=== PATIENT | male | born 1980 | race Caucasian/White ===

== ENCOUNTER 2018-11-29 17:17 | Inpatient (IN) | payer OTHER ==
[~2018-11-29] VITALS: Ht 180.3 cm; Wt 103.1 kg
[2018-11-29 18:50] VITALS: BP 145/91; PULSE 92; RESP 20
[2018-11-29 19:03] VITALS: BP 145/91; PULSE 72; RESP 19
[2018-11-29] MEDS ORDERED: HYDROCODONE/APAP (5/325) TAB PO PRN (19:30)
[2018-11-29] MEDS ORDERED: NACL 0.9% 3 ML SYG IV SCH (19:30)
[2018-11-29] MEDS ORDERED: ACETAMINOPHEN 325 MG TAB PO PRN (19:30)
[2018-11-29] MEDS ORDERED: ONDANSETRON 4 MG INJ IV PRN (19:30)
[2018-11-29 19:46] VITALS: Ht 180.3 cm; Wt 103.1 kg
[2018-11-29 20:00] VITALS: BP 133/85; PULSE 74; RESP 17
[2018-11-29] MEDS: D5W-0.45 NACL + KCL 20 MEQ 1,000 ML IV SCH (20:31)
[2018-11-29] MEDS: morphine 2 MG INJ IV PRN (21:26)
--- NOTE | 2018-11-30 00:16 | HP ---
Date/Time of Note Date/Time of Note DATE: 11/30/18 TIME: 00:15 Assessment/Plan VTE Prophylaxis Risk score (from Nsg)>0 risk: 0 SCD applied (from Nsg): Yes Pharmacological prophylaxis: heparin Lines/Catheters IV Catheter Type (from Nrsg): Saline Lock Urinary Cath still in place: No Assessment/Plan Assessment/Plan 37-year-old female with a history of appendectomy about 20 years ago presented on outside hospital with abdominal pain as well as nausea and vomiting secondary to small bowel obstruction PLAN Keep n.p.o. with IV fluid NG tube to low intermittent suction Pain meds and antiemetics as needed Surgical consult HPI/ROS Admit Date/Time Admit Date/Time Nov 29, 2018 at 18:39 Hx of Present Illness This is a 37-year-old female with a history of appendectomy who initially presented on outside hospital complaining of abdominal pain and nausea/vomiting. Pain has been diffuse and has been going on for about [address] at the outside facility showed small bowel obstruction. Patient was transferred to [facility] for insurance reason. PMH/Family/Social Past Medical History Medical History: other (see hpi) Medications Current Medications Potassium Chloride/Dextrose/ Sod Cl 1,000 ml @ 100 mls/hr Q10H IV Last administered on 11/29/18at 20:31; Admin Dose 100 MLS/HR; Start 11/29/18 at 19:17 IV Flush (NS 3 ml) 3 ml PER PROTOCOL IV ; Start 11/29/18 at 19:30 Ondansetron HCl (Zofran Inj) 4 mg Q6H PRN IV NAUSEA/VOMITING; Start 11/29/18 at 19:30 Acetaminophen (Tylenol Tab) 650 mg Q6H PRN PO .PAIN 1-3 OR TEMP; Start 11/29/18 at 19:30 Acetaminophen/ Hydrocodone Bitart ([place] (5/325)) 1 tab Q6H PRN PO .MOD PAIN 4- 6; Start 11/29/18 at 19:30 Morphine Sulfate (morphine) 2 mg Q4H PRN IV .SEVERE PAIN 7-10 Last administered on 11/29/18at 21:26; Admin Dose 2 MG; Start 11/29/18 at 19:30 Influenza Virus Vaccine Quadrival (Fluzone) 0.5 ml ONCE ONCE IM* ; Start 11/30/18 at 09:00; Stop 11/30/18 at 09:01 Coded Allergies: No Known Drug Allergies (Verified Allergy, Mild, 11/29/18) Past Surgical History Past Surgical Hx: other (see hpi) Family History Significant Family History: no pertinent family hx Social History Alcohol Use: other Smoking Status: Unknown if ever smoked Drug Use: other Exam/Review of Systems Vital Signs Vitals Vital Signs Date Temp Pulse Resp B/P (MAP) Pulse Ox O2 O2 Flow FiO2 Time Delivery Rate 11/29/18 98.7 74 17 133/85 96 20:00 (101) 11/29/18 Room Air 19:03 Exam Constitutional: other (no acute distress) Eyes: PERRL ENMT: nl external ears & nose Neck: supple Respiratory: normal air movement Cardiovascular: nl pulses Gastrointestinal: soft Extremities: normal pulses ASHLEY ARAGON MD Nov 30, 2018 00:16
[2018-11-30 02:00] VITALS: BP 110/71; PULSE 89; RESP 19
[2018-11-30] MEDS: D5W-0.45 NACL + KCL 20 MEQ 1,000 ML IV SCH ×2 (05:37→15:53)
[2018-11-30 07:51] VITALS: BP 137/84; PULSE 68; RESP 18
[2018-11-30] MEDS: morphine 2 MG INJ IV PRN ×4 (08:00→21:06)
[2018-11-30] MEDS ORDERED: INFLUENZA VIRUS VACCINE 0.5 ML (DISPENSING) IM* ONE (09:00)
--- NOTE | 2018-11-30 13:21 | CONS ---
Assessment/Plan Assessment/Plan Hospital Course (Demo Recall) 37 year old admitted with SBO - hx of previous abdominal surgery - agree with conservative treatment - WBC normal, denies excessive pain Assessment/Plan (Daily) NG tube decompression if pt symptomatic Electrolyte management IVF pain control Consultation Date/Type/Reason Admit Date/Time Nov 29, 2018 at 18:39 Type of Consult Surgical Reason for Consultation Evaluation of Abdominal pain Date/Time of Note DATE: 11/30/18 TIME: 13:13 Hx of Present Illness This is a 37-year-old female with a history of appendectomy who initially presented on outside hospital complaining of abdominal pain and nausea/vomiting. Pain has been diffuse and has been going on for about [address] at the outside facility showed small bowel obstruction. Patient was transferred to [facility] for insurance reason. Past Medical History Medical History: other Medications Current Medications Potassium Chloride/Dextrose/ Sod Cl 1,000 ml @ 100 mls/hr Q10H IV Last administered on 11/30/18at 05:37; Admin Dose 100 MLS/HR; Start 11/29/18 at 19:17 IV Flush (NS 3 ml) 3 ml PER PROTOCOL IV ; Start 11/29/18 at 19:30 Ondansetron HCl (Zofran Inj) 4 mg Q6H PRN IV NAUSEA/VOMITING; Start 11/29/18 at 19:30 Acetaminophen (Tylenol Tab) 650 mg Q6H PRN PO .PAIN 1-3 OR TEMP; Start 11/29/18 at 19:30 Acetaminophen/ Hydrocodone Bitart ([place] (5/325)) 1 tab Q6H PRN PO .MOD PAIN 4- 6; Start 11/29/18 at 19:30 Morphine Sulfate (morphine) 2 mg Q4H PRN IV .SEVERE PAIN 7-10 Last administered on 11/30/18at 11:59; Admin Dose 2 MG; Start 11/29/18 at 19:30 Allergies: Coded Allergies: No Known Drug Allergies (Verified Allergy, Mild, 11/29/18) Social History Smoking Status: Former smoker Other Social History + Exam/Review of Systems Exam Vitals Vital Signs Date Temp Pulse Resp B/P (MAP) Pulse Ox O2 O2 Flow FiO2 Time Delivery Rate 11/30/18 98.2 68 18 137/84 97 Room Air 07:51 (101) Intake and Output 11/29/18 11/29/18 11/30/18 1515:00 23:00 07:00 IntakeIntake Total 1000 ml BalanceBalance 1000 ml Constitutional: No alert, No oriented, No well developed, No non-verbal, No distress, No frail, No obese, No other Cardiovascular: No regular rate and rhythm, No nl pulses, No bruits, No diastolic murmur, No edema, No gallop, No irregular rhythm, No jugular venous distention (JVD), No murmurs/extra sounds, No rub, No systolic murmur, No S3, No S4, No other Gastrointestinal: distended Musculoskeletal: No nl extremities to inspection, No nl gait and stance, No joint tenderness, No muscle tone, No muscle weakness, No range of motion, No spine non-tender, No swelling, No other Extremities: No normal pulses, No calf tenderness, No cyanosis, No clubbing, No edema, No pitting pedal edema, No palpable cord, No tenderness, No other Neurological: No WILDLAND FIREFIGHTER 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, No nl mental status, No nl speech, No nl strength, No confused, No DTR's symmetric, No focal weakness, No lethargic, No numbness, No reflexes, No unresponsive, No other Skin: No nl turgor, No rash or lesions, No diaphoresis, No ecchymosis, No laceration, No puncture, No other Lymph: No nl lymph nodes, No enlarged, No nontender, No other Results Result Diagram: 11/30/18 0605 11/30/18 0605 Results 24hrs Laboratory Tests Test 11/30/18 06:05 White Blood Count 6.5 Red Blood Count 5.21 Hemoglobin 14.7 Hematocrit 44.3 Mean Corpuscular Volume 85.0 Mean Corpuscular Hemoglobin 28.2 L Mean Corpuscular Hemoglobin Concent 33.2 Red Cell Distribution Width 14.0 Platelet Count 178 Mean Platelet Volume 11.1 H Immature Granulocytes % 0.200 Neutrophils % 60.6 Lymphocytes % 20.9 Monocytes % 14.4 H Eosinophils % 3.4 Basophils % 0.5 Nucleated Red Blood Cells % 0.0 Immature Granulocytes # 0.010 Neutrophils # 4.0 Lymphocytes # 1.4 Monocytes # 0.9 Eosinophils # 0.2 Basophils # 0.0 Nucleated Red Blood Cells # 0.0 Sodium Level 144 Potassium Level 3.7 Chloride Level 103 Carbon Dioxide Level 32 H Anion Gap 9 Blood Urea Nitrogen 14 Creatinine 1.00 Est Glomerular Filtrat Rate mL/min > 60 Glucose Level 102 Hemoglobin A1c 5.1 Calcium Level 9.0 Phosphorus Level 3.0 Magnesium Level 2.0 Total Bilirubin 0.6 Direct Bilirubin 0.00 Indirect Bilirubin 0.6 Aspartate Amino Transf (AST/SGOT) 43 Alanine Aminotransferase (ALT/SGPT) 73 H Alkaline Phosphatase 59 Total Protein 6.7 Albumin 3.7 Globulin 3.00 Albumin/Globulin Ratio 1.23 Medications Medication Current Medications Potassium Chloride/Dextrose/ Sod Cl 1,000 ml @ 100 mls/hr Q10H IV Last administered on 11/30/18at 05:37; Admin Dose 100 MLS/HR; Start 11/29/18 at 19:17 IV Flush (NS 3 ml) 3 ml PER PROTOCOL IV ; Start 11/29/18 at 19:30 Ondansetron HCl (Zofran Inj) 4 mg Q6H PRN IV NAUSEA/VOMITING; Start 11/29/18 at 19:30 Acetaminophen (Tylenol Tab) 650 mg Q6H PRN PO .PAIN 1-3 OR TEMP; Start 11/29/18 at 19:30 Acetaminophen/ Hydrocodone Bitart ([place] (5/325)) 1 tab Q6H PRN PO .MOD PAIN 4- 6; Start 11/29/18 at 19:30 Morphine Sulfate (morphine) 2 mg Q4H PRN IV .SEVERE PAIN 7-10 Last administered on 11/30/18at 11:59; Admin Dose 2 MG; Start 11/29/18 at 19:30 VON BARRERA MD Nov 30, 2018 13:21
[2018-11-30 14:00] VITALS: BP 122/76; PULSE 55; RESP 18
--- NOTE | 2018-11-30 15:45 | PN ---
Date/Time of Note Date/Time of Note DATE: 11/30/18 TIME: 15:39 Assessment/Plan VTE Prophylaxis Risk score (from Nsg)>0 risk: 0 SCD applied (from Nsg): Yes Pharmacological prophylaxis: LMWH Lines/Catheters IV Catheter Type (from Nrsg): Saline Lock Urinary Cath still in place: No Assessment/Plan Assessment/Plan 1. SBO, NPO/IVF, pain control, continue with Ng low suction, KUB in am Result Diagram: 11/30/1860411/30/18604 Results 24hrs Laboratory Tests Test 11/30/18 06:05 White Blood Count 6.5 Red Blood Count 5.21 Hemoglobin 14.7 Hematocrit 44.3 Mean Corpuscular Volume 85.0 Mean Corpuscular Hemoglobin 28.2 L Mean Corpuscular Hemoglobin Concent 33.2 Red Cell Distribution Width 14.0 Platelet Count 178 Mean Platelet Volume 11.1 H Immature Granulocytes % 0.200 Neutrophils % 60.6 Lymphocytes % 20.9 Monocytes % 14.4 H Eosinophils % 3.4 Basophils % 0.5 Nucleated Red Blood Cells % 0.0 Immature Granulocytes # 0.010 Neutrophils # 4.0 Lymphocytes # 1.4 Monocytes # 0.9 Eosinophils # 0.2 Basophils # 0.0 Nucleated Red Blood Cells # 0.0 Sodium Level 144 Potassium Level 3.7 Chloride Level 103 Carbon Dioxide Level 32 H Anion Gap 9 Blood Urea Nitrogen 14 Creatinine 1.00 Est Glomerular Filtrat Rate mL/min > 60 Glucose Level 102 Hemoglobin A1c 5.1 Calcium Level 9.0 Phosphorus Level 3.0 Magnesium Level 2.0 Total Bilirubin 0.6 Direct Bilirubin 0.00 Indirect Bilirubin 0.6 Aspartate Amino Transf (AST/SGOT) 43 Alanine Aminotransferase (ALT/SGPT) 73 H Alkaline Phosphatase 59 Total Protein 6.7 Albumin 3.7 Globulin 3.00 Albumin/Globulin Ratio 1.23 Subjective 24 Hr Interval Summary Free Text/Dictation less abdominal pain Exam/Review of Systems Exam Vitals Vital Signs Date Temp Pulse Resp B/P (MAP) Pulse Ox O2 O2 Flow FiO2 Time Delivery Rate 11/30/18 98.0 55 18 122/76 97 Room Air 14:00 (91) Intake and Output 11/29/18 11/29/18 11/30/18 1515:00 23:00 07:00 IntakeIntake Total 1000 ml BalanceBalance 1000 ml Constitutional: alert, oriented, well developed Psych: no complaints, nl mood/affect Head: normocephalic, atraumatic Eyes: nl conjunctiva, EOMI, nl lids ENMT: nl external ears & nose, nl lips & teeth, nl nasal mucosa & septum Neck: supple, non-tender Respiratory: clear to auscultation, normal air movement; No congested cough, No crackles/rales, No diminished breath sounds, No intercostal retraction, No labored breathing, No respirations, No tactile fremitus, No wheezing, No other Cardiovascular: regular rate and rhythm, nl pulses; No bruits, No diastolic murmur, No edema, No gallop, No irregular rhythm, No jugular venous distention (JVD), No murmurs/extra sounds, No rub, No systolic murmur, No S3, No S4, No other Gastrointestinal: nl liver, spleen, tender (diffuse [id number]) Musculoskeletal: nl extremities to inspection Extremities: normal pulses; No calf tenderness, No cyanosis, No clubbing, No edema, No pitting pedal edema, No palpable cord, No tenderness, No other Neurological: 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, nl mental status, nl speech, nl strength Skin: nl turgor Results Results 24hrs Laboratory Tests Test 11/30/18 06:05 White Blood Count 6.5 Red Blood Count 5.21 Hemoglobin 14.7 Hematocrit 44.3 Mean Corpuscular Volume 85.0 Mean Corpuscular Hemoglobin 28.2 L Mean Corpuscular Hemoglobin Concent 33.2 Red Cell Distribution Width 14.0 Platelet Count 178 Mean Platelet Volume 11.1 H Immature Granulocytes % 0.200 Neutrophils % 60.6 Lymphocytes % 20.9 Monocytes % 14.4 H Eosinophils % 3.4 Basophils % 0.5 Nucleated Red Blood Cells % 0.0 Immature Granulocytes # 0.010 Neutrophils # 4.0 Lymphocytes # 1.4 Monocytes # 0.9 Eosinophils # 0.2 Basophils # 0.0 Nucleated Red Blood Cells # 0.0 Sodium Level 144 Potassium Level 3.7 Chloride Level 103 Carbon Dioxide Level 32 H Anion Gap 9 Blood Urea Nitrogen 14 Creatinine 1.00 Est Glomerular Filtrat Rate mL/min > 60 Glucose Level 102 Hemoglobin A1c 5.1 Calcium Level 9.0 Phosphorus Level 3.0 Magnesium Level 2.0 Total Bilirubin 0.6 Direct Bilirubin 0.00 Indirect Bilirubin 0.6 Aspartate Amino Transf (AST/SGOT) 43 Alanine Aminotransferase (ALT/SGPT) 73 H Alkaline Phosphatase 59 Total Protein 6.7 Albumin 3.7 Globulin 3.00 Albumin/Globulin Ratio 1.23 Medications Medication Current Medications Potassium Chloride/Dextrose/ Sod Cl 1,000 ml @ 100 mls/hr Q10H IV Last administered on 11/30/18at 05:37; Admin Dose 100 MLS/HR; Start 11/29/18 at 19:17 IV Flush (NS 3 ml) 3 ml PER PROTOCOL IV ; Start 11/29/18 at 19:30 Ondansetron HCl (Zofran Inj) 4 mg Q6H PRN IV NAUSEA/VOMITING; Start 11/29/18 at 19:30 Acetaminophen (Tylenol Tab) 650 mg Q6H PRN PO .PAIN 1-3 OR TEMP; Start 11/29/18 at 19:30 Acetaminophen/ Hydrocodone Bitart ([place] (5/325)) 1 tab Q6H PRN PO .MOD PAIN 4- 6; Start 11/29/18 at 19:30 Morphine Sulfate (morphine) 2 mg Q4H PRN IV .SEVERE PAIN 7-10 Last administered on 11/30/18at 11:59; Admin Dose 2 MG; Start 11/29/18 at 19:30 DEMETRIO JOHNSON MD Nov 30, 2018 15:45
[2018-11-30 19:16] VITALS: BP 133/81; PULSE 69; RESP 18
[2018-11-30] MEDS: PHENOL 1.4% SOLN 180 ML BTL MT PRN (21:07)
[2018-12-01] MEDS: morphine 2 MG INJ IV PRN ×5 (00:55→20:01)
[2018-12-01 02:08] VITALS: BP 115/68; PULSE 67; RESP 18
[2018-12-01] MEDS: D5W-0.45 NACL + KCL 20 MEQ 1,000 ML IV SCH ×3 (02:53→21:17)
[2018-12-01] MEDS: PHENOL 1.4% SOLN 180 ML BTL MT PRN ×4 (05:48→23:25)
--- NOTE | 2018-12-01 12:37 | PN ---
Date/Time of Note Date/Time of Note DATE: 12/01/18 TIME: 12:25 Assessment/Plan VTE Prophylaxis Risk score (from Nsg)>0 risk: 2 SCD applied (from Nsg): Yes Pharmacological prophylaxis: LMWH Lines/Catheters IV Catheter Type (from Nrsg): Peripheral IV Urinary Cath still in place: No Assessment/Plan Assessment/Plan 1. SBO, NPO/IVF, pain control, continue with Ng low suction, SBFT Result Diagram: 12/01/18 0606 12/01/18 0605 Results 24hrs Laboratory Tests Test 12/01/18 06:05 12/01/18 06:06 Sodium Level 145 H Potassium Level 3.9 Chloride Level 104 Carbon Dioxide Level 30 Anion Gap 11 Blood Urea Nitrogen 13 Creatinine 0.97 Est Glomerular Filtrat Rate mL/min > 60 Glucose Level 89 Calcium Level 9.4 Magnesium Level 2.1 White Blood Count 7.6 Red Blood Count 5.40 Hemoglobin 15.2 Hematocrit 46.3 Mean Corpuscular Volume 85.7 Mean Corpuscular Hemoglobin 28.1 L Mean Corpuscular Hemoglobin Concent 32.8 Red Cell Distribution Width 13.6 Platelet Count 193 Mean Platelet Volume 11.0 H Immature Granulocytes % 0.300 Neutrophils % 65.6 Lymphocytes % 19.3 Monocytes % 11.2 H Eosinophils % 3.2 Basophils % 0.4 Nucleated Red Blood Cells % 0.0 Immature Granulocytes # 0.020 Neutrophils # 5.0 Lymphocytes # 1.5 Monocytes # 0.9 Eosinophils # 0.2 Basophils # 0.0 Nucleated Red Blood Cells # 0.0 Subjective 24 Hr Interval Summary Free Text/Dictation much less abdominal pain and distension Exam/Review of Systems Exam Vitals Vital Signs Date Temp Pulse Resp B/P (MAP) Pulse Ox O2 O2 Flow FiO2 Time Delivery Rate 12/01/18 98.2 67 18 115/68 96 02:08 (84) 11/30/18 Room Air 14:00 Intake and Output 11/30/18 11/30/18 12/01/18 1414:59 22:59 06:59 IntakeIntake Total 1200 ml 1050 ml OutputOutput Total 1600 ml 1200 ml BalanceBalance -400 ml -150 ml Constitutional: alert, oriented, well developed Psych: no complaints, nl mood/affect Head: normocephalic, atraumatic Eyes: nl conjunctiva, EOMI, nl lids, PERRL ENMT: nl external ears & nose, nl lips & teeth, nl nasal mucosa & septum Neck: supple, non-tender Respiratory: clear to auscultation, normal air movement; No congested cough, No crackles/rales, No diminished breath sounds, No intercostal retraction, No labored breathing, No respirations, No tactile fremitus, No wheezing, No other Cardiovascular: regular rate and rhythm, nl pulses Gastrointestinal: soft, nl liver, spleen Musculoskeletal: nl extremities to inspection Extremities: normal pulses; No calf tenderness, No cyanosis, No clubbing, No edema, No pitting pedal skyler a, No palpable cord, No tenderness, No other Neurological: FOUNDRY PATTERNMAKER 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, nl mental status, nl speech, nl strength Results Results 24hrs Laboratory Tests Test 12/01/18 06:05 12/01/18 06:06 Sodium Level 145 H Potassium Level 3.9 Chloride Level 104 Carbon Dioxide Level 30 Anion Gap 11 Blood Urea Nitrogen 13 Creatinine 0.97 Est Glomerular Filtrat Rate mL/min > 60 Glucose Level 89 Calcium Level 9.4 Magnesium Level 2.1 White Blood Count 7.6 Red Blood Count 5.40 Hemoglobin 15.2 Hematocrit 46.3 Mean Corpuscular Volume 85.7 Mean Corpuscular Hemoglobin 28.1 L Mean Corpuscular Hemoglobin Concent 32.8 Red Cell Distribution Width 13.6 Platelet Count 193 Mean Platelet Volume 11.0 H Immature Granulocytes % 0.300 Neutrophils % 65.6 Lymphocytes % 19.3 Monocytes % 11.2 H Eosinophils % 3.2 Basophils % 0.4 Nucleated Red Blood Cells % 0.0 Immature Granulocytes # 0.020 Neutrophils # 5.0 Lymphocytes # 1.5 Monocytes # 0.9 Eosinophils # 0.2 Basophils # 0.0 Nucleated Red Blood Cells # 0.0 Medications Medication Current Medications Potassium Chloride/Dextrose/ Sod Cl 1,000 ml @ 100 mls/hr Q10H IV Last administered on 12/01/18at 12:15; Admin Dose 100 MLS/HR; Start 11/29/18 at 19:17 IV Flush (NS 3 ml) 3 ml PER PROTOCOL IV ; Start 11/29/18 at 19:30 Ondansetron HCl (Zofran Inj) 4 mg Q6H PRN IV NAUSEA/VOMITING; Start 11/29/18 at 19:30 Acetaminophen (Tylenol Tab) 650 mg Q6H PRN PO .PAIN 1-3 OR TEMP; Start 11/29/18 at 19:30 Acetaminophen/ Hydrocodone Bitart ([place] (5/325)) 1 tab Q6H PRN PO .MOD PAIN 4- 6; Start 11/29/18 at 19:30 Morphine Sulfate (morphine) 2 mg Q4H PRN IV .SEVERE PAIN 7-10 Last administered on 12/01/18at 12:18; Admin Dose 2 MG; Start 11/29/18 at 19:30 Phenol (Chloraseptic Throat [place]) 2 spray Q2H PRN MT SORE THROAT Last administered on 12/01/18at 05:48; Admin Dose 2 SPRAY; Start 11/30/18 at 20:30 DEMETRIO JOHNSON MD Dec 01, 2018 12:35
[2018-12-01] MEDS ORDERED: DIATR MEGLU/DIATRIZOATE SODIUM 120 ML BTL ONE (13:32)
--- NOTE | 2018-12-01 14:19 | CONS ---
Assessment/Plan Assessment/Plan Hospital Course (Demo Recall) 37 year old admitted with SBO - hx of previous abdominal surgery - agree with conservative treatment - WBC normal, denies excessive pain Assessment/Plan (Daily) Continue treatment - some interval improvement Consultation Date/Type/Reason Admit Date/Time Nov 29, 2018 at 18:39 Initial Consult Date Type of Consult Surgical Date/Time of Note DATE: 12/01/18 TIME: 14:17 Exam/Review of Systems Exam Vitals Vital Signs Date Temp Pulse Resp B/P (MAP) Pulse Ox O2 O2 Flow FiO2 Time Delivery Rate 12/01/18 98.2 67 18 115/68 96 02:08 (84) 11/30/18 Room Air 14:00 Intake and Output 11/30/18 11/30/18 12/01/18 1515:00 23:00 07:00 IntakeIntake Total 1200 ml 1050 ml OutputOutput Total 1600 ml 1200 ml BalanceBalance -400 ml -150 ml Constitutional: No alert, No oriented, No well developed, No non-verbal, No distress, No frail, No obese, No other Head: No normocephalic, No atraumatic, No lacerations, No hematomas, No other Respiratory: No clear to auscultation, No normal air movement, No congested cough, No crackles/rales, No diminished breath sounds, No intercostal retraction, No labored breathing, No respirations, No tactile fremitus, No wheezing, No other Cardiovascular: No regular rate and rhythm, No nl pulses, No bruits, No diastolic murmur, No edema, No gallop, No irregular rhythm, No jugular venous distention (JVD), No murmurs/extra sounds, No rub, No systolic murmur, No S3, No S4, No other Gastrointestinal: soft, non-tender Results Result Diagram: 12/01/18 0606 12/01/18 0605 Results 24hrs Laboratory Tests Test 12/01/18 06:05 12/01/18 06:06 Sodium Level 145 H Potassium Level 3.9 Chloride Level 104 Carbon Dioxide Level 30 Anion Gap 11 Blood Urea Nitrogen 13 Creatinine 0.97 Est Glomerular Filtrat Rate mL/min > 60 Glucose Level 89 Calcium Level 9.4 Magnesium Level 2.1 White Blood Count 7.6 Red Blood Count 5.40 Hemoglobin 15.2 Hematocrit 46.3 Mean Corpuscular Volume 85.7 Mean Corpuscular Hemoglobin 28.1 L Mean Corpuscular Hemoglobin Concent 32.8 Red Cell Distribution Width 13.6 Platelet Count 193 Mean Platelet Volume 11.0 H Immature Granulocytes % 0.300 Neutrophils % 65.6 Lymphocytes % 19.3 Monocytes % 11.2 H Eosinophils % 3.2 Basophils % 0.4 Nucleated Red Blood Cells % 0.0 Immature Granulocytes # 0.020 Neutrophils # 5.0 Lymphocytes # 1.5 Monocytes # 0.9 Eosinophils # 0.2 Basophils # 0.0 Nucleated Red Blood Cells # 0.0 Medications Medication Current Medications Potassium Chloride/Dextrose/ Sod Cl 1,000 ml @ 100 mls/hr Q10H IV Last adminis tered on 12/01/18at 12:15; Admin Dose 100 MLS/HR; Start 11/29/18 at 19:17 IV Flush (NS 3 ml) 3 ml PER PROTOCOL IV ; Start 11/29/18 at 19:30 Ondansetron HCl (Zofran Inj) 4 mg Q6H PRN IV NAUSEA/VOMITING; Start 11/29/18 at 19:30 Acetaminophen (Tylenol Tab) 650 mg Q6H PRN PO .PAIN 1-3 OR TEMP; Start 11/29/18 at 19:30 Acetaminophen/ Hydrocodone Bitart ([place] (5/325)) 1 tab Q6H PRN PO .MOD PAIN 4- 6; Start 11/29/18 at 19:30 Morphine Sulfate (morphine) 2 mg Q4H PRN IV .SEVERE PAIN 7-10 Last administered on 12/01/18at 12:18; Admin Dose 2 MG; Start 11/29/18 at 19:30 Phenol (Chloraseptic Throat [place]) 2 spray Q2H PRN MT SORE THROAT Last administered on 12/01/18at 05:48; Admin Dose 2 SPRAY; Start 11/30/18 at 20:30 VON BARRERA MD Dec 01, 2018 14:19
[2018-12-01 19:48] VITALS: BP 128/80; PULSE 77; RESP 20
[2018-12-02] MEDS: morphine 2 MG INJ IV PRN ×5 (00:25→19:59)
[2018-12-02 02:00] VITALS: BP 115/69; PULSE 63; RESP 19
[2018-12-02] MEDS: D5W-0.45 NACL + KCL 20 MEQ 1,000 ML IV SCH ×2 (04:02→18:35)
[2018-12-02 07:25] VITALS: BP 120/81; PULSE 62; RESP 16
[2018-12-02] MEDS: PHENOL 1.4% SOLN 180 ML BTL MT PRN (09:32)
[2018-12-02 14:10] VITALS: BP 126/76; PULSE 65; RESP 16
--- NOTE | 2018-12-02 15:00 | PN ---
Date/Time of Note Date/Time of Note DATE: 12/02/18 TIME: 14:59 Assessment/Plan VTE Prophylaxis Risk score (from Nsg)>0 risk: 0 SCD applied (from Nsg): Yes Pharmacological prophylaxis: LMWH Lines/Catheters IV Catheter Type (from Nrsg): Peripheral IV Urinary Cath still in place: No Assessment/Plan Assessment/Plan 1. SBO,resolved, remove NG tube, start liquid diet Result Diagram: 12/01/18 0606 12/02/18 1016 Results 24hrs Laboratory Tests Test 12/02/18 10:16 Sodium Level 144 Potassium Level 4.0 Chloride Level 104 Carbon Dioxide Level 28 Anion Gap 12 Blood Urea Nitrogen 15 Creatinine 0.90 Est Glomerular Filtrat Rate mL/min > 60 Glucose Level 100 Calcium Level 9.6 Magnesium Level 2.1 Subjective 24 Hr Interval Summary Free Text/Dictation no abdominal pain, two BMs Exam/Review of Systems Exam Vitals Vital Signs Date Temp Pulse Resp B/P (MAP) Pulse Ox O2 O2 Flow FiO2 Time Delivery Rate 12/02/18 98.1 65 16 126/76 96 Room Air 14:10 (93) Intake and Output 12/01/18 12/01/18 12/02/18 1515:00 23:00 07:00 IntakeIntake Total 1000 ml 800 ml BalanceBalance 1000 ml 800 ml Constitutional: alert, oriented, well developed Psych: no complaints, nl mood/affect Head: normocephalic, atraumatic Eyes: nl conjunctiva, EOMI, nl lids ENMT: nl external ears & nose, nl lips & teeth, nl nasal mucosa & septum Neck: supple, non-tender Respiratory: clear to auscultation, normal air movement; No congested cough, No crackles/rales, No diminished breath sounds, No intercostal retraction, No labored breathing, No respirations, No tactile fremitus, No wheezing, No other Cardiovascular: regular rate and rhythm, nl pulses; No bruits, No diastolic murmur, No edema, No gallop, No irregular rhythm, No jugular venous distention (JVD), No murmurs/extra sounds, No rub, No systolic m urmur, No S3, No S4, No other Gastrointestinal: soft, nl liver, spleen, non-tender; No ascites, No bowel sounds, No distended, No firm, No hepatomegaly, No mass, No rebound or guarding, No splenomegaly, No surgical scars, No tender, No other Musculoskeletal: nl extremities to inspection Extremities: normal pulses; No calf tenderness, No cyanosis, No clubbing, No edema, No pitting pedal edema, No palpable cord, No tenderness, No other Neurological: 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, nl mental status, nl speech, nl strength Results Results 24hrs Laboratory Tests Test 12/02/18 10:16 Sodium Level 144 Potassium Level 4.0 Chloride Level 104 Carbon Dioxide Level 28 Anion Gap 12 Blood Urea Nitrogen 15 Creatinine 0.90 Est Glomerular Filtrat Rate mL/min > 60 Glucose Level 100 Calcium Level 9.6 Magnesium Level 2.1 Medications Medication Current Medications Potassium Chloride/Dextrose/ Sod Cl 1,000 ml @ 100 mls/hr Q10H IV Last administered on 12/02/18at 04:02; Admin Dose 100 MLS/HR; Start 11/29/18 at 19:17 IV Flush (NS 3 ml) 3 ml PER PROTOCOL IV ; Start 11/29/18 at 19:30 Ondansetron HCl (Zofran Inj) 4 mg Q6H PRN IV NAUSEA/VOMITING; Start 11/29/18 at 19:30 Acetaminophen (Tylenol Tab) 650 mg Q6H PRN PO .PAIN 1-3 OR TEMP; Start 11/29/18 at 19:30 Acetaminophen/ Hydrocodone Bitart ([place] (5/325)) 1 tab Q6H PRN PO .MOD PAIN 4- 6; Start 11/29/18 at 19:30 Morphine Sulfate (morphine) 2 mg Q4H PRN IV .SEVERE PAIN 7-10 Last administered on 12/02/18at 14:34; Admin Dose 2 MG; Start 11/29/18 at 19:30 Phenol (Chloraseptic Throat [place]) 2 spray Q2H PRN MT SORE THROAT Last administered on 12/02/18at 09:32; Admin Dose 2 SPRAY; Start 11/30/18 at 20:30 DEMETRIO JOHNSON MD Dec 02, 2018 15:00
--- NOTE | 2018-12-02 19:56 | PN ---
Date/Time of Note Date/Time of Note DATE: 12/02/18 TIME: 19:54 Assessment/Plan Lines/Catheters IV Catheter Type (from [facility]): Peripheral IV Pettit in Place (from [facility]): No Assessment/Plan Chief Complaint/Hosp Course Admitted with SBO - with progressive resolution, NG tube elevated bc pt is drinking water, UGI -- with resolution of the obstruction. Assessment/Plan Plan for removal of the NG tube and starting - Liquid diet adv as tolerated . Exam/Review of Systems Vital Signs Vitals Vital Signs Date Temp Pulse Resp B/P (MAP) Pulse Ox O2 O2 Flow FiO2 Time Delivery Rate 12/02/18 98.1 65 16 126/76 96 Room Air 14:10 (93) Intake and Output 12/01/18 12/01/18 12/02/18 1515:00 23:00 07:00 IntakeIntake Total 1000 ml 800 ml BalanceBalance 1000 ml 800 ml Results Result Diagram: 12/01/18 0606 12/02/18 1016 VON BARRERA MD Dec 02, 2018 19:56
[2018-12-02 20:01] VITALS: BP 137/84; PULSE 64; RESP 18
[2018-12-03 02:00] VITALS: BP 113/70; PULSE 65; RESP 18
[2018-12-03] MEDS: D5W-0.45 NACL + KCL 20 MEQ 1,000 ML IV SCH ×2 (04:41→13:17)
[2018-12-03] MEDS: morphine 2 MG INJ IV PRN ×2 (04:42→12:20)
[2018-12-03 07:25] VITALS: BP 120/82; PULSE 65; RESP 16
[2018-12-03] MEDS ORDERED: ENOXAPARIN 40 MG/0.4 ML SYG SC SCH (09:00)
--- NOTE | 2018-12-03 13:02 | DS ---
Date/Time of Note Date/Time of Note DATE: 12/03/18 TIME: 12:59 Discharge Summary Admission/Discharge Info Admit Date/Time Nov 29, 2018 at 18:39 Discharge Date/Time Discharge Diagnosis 1. SBO,resolved, follow up with PCP Patient Condition: Stable Hospital Course This is a 37-year-old female with a history of appendectomy who initially presented on outside hospital complaining of abdominal pain and nausea/vomiting. Pain has been diffuse and has been going on for about [address] at the outside facility showed small bowel obstruction. Patient was transferred to [facility] for insurance reason. Patient was treated with NPO/IVF and NG tube with low suction. He had small bowel follow though on 12/01/2018 that showed SBO resolved. Patient tolerates diet well. He will follow up with PCP in one week. Home Meds No Active Prescriptions or Reported Meds Follow-up Plan PCP in one week Primary Care Provider Not On Staff Doctor Pending Labs Laboratory Tests Test 12/03/18 04:43 White Blood Count 6.2 10^3/ul (4.8-10.8) Red Blood Count 5.21 10^6/ul (4.70-6.10) Hemoglobin 14.8 g/dl (14.0-18.0) Hematocrit 44.6 % (42.0-52.0) Mean Corpuscular Volume 85.6 fl (82.0-101.0) Mean Corpuscular Hemoglobin 28.4 pg (29.0-33.0) Mean Corpuscular Hemoglobin Concent 33.2 g/dl (32.0-37.0) Red Cell Distribution Width 13.2 % (11.5-14.5) Platelet Count 212 10^3/UL (140-415) Mean Platelet Volume 10.7 fl (7.4-10.4) Immature Granulocytes % 0.300 % (0.001-0.429) Neutrophils % 55.7 % (39.0-77.0) Lymphocytes % 28.1 % (15.0-51.0) Monocytes % 10.3 % (0.0-11.0) Eosinophils % 5.0 % (0.0-7.0) Basophils % 0.6 % (0.0-2.0) Nucleated Red Blood Cells % 0.0 /100WBC (0.0-0.0) Immature Granulocytes # 0.020 10^3/ul (0.0-0.031) Neutrophils # 3.5 10^3/ul (1.6-7.5) Lymphocytes # 1.8 10^3/ul (0.8-2.9) Monocytes # 0.6 10^3/ul (0.3-0.9) Eosinophils # 0.3 10^3/ul (0.0-0.5) Basophils # 0.0 10^3/ul (0.0-0.1) Nucleated Red Blood Cells # 0.0 10^3/ul (0.0-0.0) Sodium Level 142 mmol/L (135-144) Potassium Level 4.1 mmol/L (3.5-5.1) Chloride Level 103 mmol/L (97-110) Carbon Dioxide Level 30 mmol/L (21-31) Anion Gap 9 (5-13) Blood Urea Nitrogen 13 mg/dl (7-20) Creatinine 0.88 mg/dl (0.61-1.24) Est Glomerular Filtrat Rate mL/min > 60 mL/min (>60) Glucose Level 92 mg/dl (70-220) Calcium Level 9.1 mg/dl (8.4-10.2) DEMETRIO JOHNSON MD Dec 03, 2018 13:02
== END 2018-12-03 14:08 | disposition home or self-care (01) | DRG 390 ==
LOC: EDSEX 18:39 → 5EC 18:39 → PP2 12-01 22:59
PROVIDERS: ADMIT Internal Medicine; ATTEND Internal Medicine
DX: K56.609 Unspecified intestinal obstruction, unspecified as to partial versus complete obstruction (principal)
CPT/HCPCS: 74018; 74250; 80048; 80053; 83036; 83735; 84100; 85025; 90686; J1650; J2270; J3480